=== PATIENT | male | born 1965 | race Caucasian/White ===

== ENCOUNTER 2021-05-25 19:25 | Inpatient (IN) ==
[2021-05-25] MEDS ORDERED: SODIUM CHLORIDE 0.9% 1,000 ML IV STA (19:45)
[2021-05-25] MEDS ORDERED: ONDANSETRON 4 MG/2 ML VIAL IV ONE (19:59)
[2021-05-25] MEDS ORDERED: HYDROmorphone 2 MG/1 ML VIAL IV STA ×2 (19:59→20:50)
[2021-05-25 20:13] LABS: Basophils % 0.5 % (0.0-0.8); Eosinophils # 0.1 10*3/uL (0.0-0.87); Hemoglobin 8.5 GM/DL (14.0-18.0); Immature Granulocytes Absolute 0.04 #; Lymphocytes # 0.6 10*3/uL (1.4-4.0); Lymphocytes % 15.1 % (21.2-54.2); Mean Corpuscular HGB Conc 30.4 GM/DL (32-36); Mean Corpuscular Volume 83.8 FL (87-102); Monocytes % 15.8 % (1.7-12.7); Neutrophils % 65.6 % (38.7-73.9); Platelet Count 175 T/CUMM (130-400); Red Blood Count 3.34 MC/CUMM (3.8-5.5); Red Cell Distribution Width 17.9 % (9.3-17.3)
[2021-05-25 20:34] LABS: Albumin 3.3 G/DL (3.4-5.0); Bilirubin,Total 0.4 MG/DL (0.20-1.00); Calcium 8.5 MG/DL (8.5-10.1); Osmolality,Calculated 280.4 MOS/KG (273-304); Potassium 3.6 MMOL/L (3.5-5.1); Total Protein 6.5 G/DL (6.4-8.2)
[2021-05-25 20:40] LABS: Band Neutrophils 1 % (0-10); Hypochromasia 2+; Lymphocytes 17 % (20-55); Metamyelocytes 2 %; Platelet Estimate Normal; Segmented Neutrophils 71 % (50-85); Total Cells Counted 100; Toxic Granulation 1+
[2021-05-25 20:41] LABS: Elliptocytes Few; Microcytosis 1+; Reactive Lymphocytes Few
[2021-05-25] MEDS ORDERED: PIPERACILLIN/TAZOBACTAM 3,375 MG in SODIUM CHLORIDE 0.9% 100 ML IV STA (21:07)
[2021-05-25] MEDS ORDERED: ACETAMINOPHEN 325 MG TABLET PO PRN (22:37)
[2021-05-25] MEDS ORDERED: GLUCAGON 1 MG VIAL IM PRN (22:37)
[2021-05-25] MEDS ORDERED: DEXTROSE 50% 25 GM/50 ML VIAL IV PRN (22:37)
[2021-05-25] MEDS ORDERED: ONDANSETRON 4 MG/2 ML VIAL IV PRN (22:37)
[2021-05-25] MEDS: HYDROmorphone 2 MG/1 ML VIAL IV PRN (22:58)
[2021-05-26] MEDS ORDERED: BISACODYL 10 MG SUPP RECTAL ONE (01:15)
[2021-05-26] MEDS: HYDROmorphone 2 MG/1 ML VIAL IV PRN ×3 (02:11→08:55)
[2021-05-26] MEDS ORDERED: PIPERACILLIN/TAZOBACTAM 3,375 MG in SODIUM CHLORIDE 0.9% 100 ML IV SCH (05:00)
[2021-05-26 05:15] LABS: Basophils % 0.6 % (0.0-0.8); Eosinophils # 0.1 10*3/uL (0.0-0.87); Eosinophils % 2.3 % (0.00-10.9); Hematocrit 25.4 VOL% (42.0-52.0); Hemoglobin 7.6 GM/DL (14.0-18.0); Immature Granulocytes % 1.2 %; Immature Granulocytes Absolute 0.04 #; Lymphocytes # 0.6 10*3/uL (1.4-4.0); Mean Corpuscular HGB Conc 29.9 GM/DL (32-36); Mean Corpuscular Volume 84.4 FL (87-102); Mean Platelet Volume 9.9 FL (9.6-12.0); Neutrophils % 63.9 % (38.7-73.9); Platelet Count 136 T/CUMM (130-400); Red Blood Count 3.01 MC/CUMM (3.8-5.5); White Blood Count 3.4 T/CUMM (4-12)
[2021-05-26 05:44] LABS: Albumin 2.9 G/DL (3.4-5.0); Osmolality,Calculated 285.7 MOS/KG (273-304); Potassium 3.5 MMOL/L (3.5-5.1); Total Protein 5.6 G/DL (6.4-8.2)
[2021-05-26 05:46] LABS: Anisocytosis 1+; Eosinophils 2 % (0-10); Hypochromasia 1+; Lymphocytes 18 % (20-55); Microcytosis 1+; Nucleated Red Blood Cells 1 (0-5); Ovalocytes Slight; Segmented Neutrophils 70 % (50-85); Total Cells Counted 100
[2021-05-26 05:47] LABS: Platelet Estimate Adequate
[2021-05-26 07:03] LABS: Barbiturates Screen,Urine Negative (Negative); Benzodiazepines Screen,Urine Negative (Negative); Cannabinoid Screen,Urine Negative (Negative); Opiate Screen,Urine Positive (Negative); Phencyclidine Screen,Urine Negative (Negative)
[2021-05-26 08:12] VITALS: BP 100/60
[2021-05-26 08:36] LABS: % Iron Saturation 6.1 % (18-50)
[2021-05-26 08:41] LABS: Folate 17.74 NG/ML (5.38-24.0)
[2021-05-26] MEDS ORDERED: CYANOCOBALAMIN 1000 MCG/1 ML VIAL IM SCH (09:30)
[2021-05-26] MEDS ORDERED: FERRIC GLUCONATE COMPLEX 125 MG in SODIUM CHLORIDE 0.9% 100 ML IV SCH (09:30)
== END 2021-05-26 09:40 | disposition left against medical advice (07) | DRG 392 ==
LOC: N.ED 19:25 → N.EDINP 23:12 → N.3E 23:24
PROVIDERS: ADMIT Internal Medicine; ATTEND Internal Medicine